=== PATIENT | female | born 1975 | race Caucasian/White ===

== ENCOUNTER → 2017-11-14 14:28 | Outpatient (POV) | payer OTHER, SELFPAY ==
[2017-11-14 14:54] VITALS: BP 145/80; PULSE 80; RESP 18; O2SAT 95
--- NOTE | 2017-11-14 15:12 | P.CONS_ITS ---
Assessment and Plan (1) Bilateral sacroiliitis Current visit: Yes Status: Acute Category: Medical Code(s): M46.1 - Sacroiliitis, not elsewhere classified (2) Degenerative joint disease (DJD) of lumbar spine Current visit: Yes Status: Acute Qualifiers: Spinal osteoarthritis complication: with radiculopathy Qualified Code(s): M47.26 - Other spondylosis with radiculopathy, lumbar region Category: Medical Code(s): M47.816 - Spondylosis without myelopathy or radiculopathy, lumbar region - Assessment and plan all Dx Assessment and Plan for all problems:: We will seek approval and plan on bilateral SI joint injections under fluoroscopy. She is to continue with her Celebrex. We will follow-up with her after these injections HPI - Data of Consult Patient: new to practice Consult date: 11/14/17 Requesting Physician: Gaurav Mariee MD Primary Care Provider: Heriberto Barraza MD - Consult Narrative Reason for consult: Back pain and bilateral hip pain History of present illness: Ms. Mcclure is a 42 year old female CC: Gaurav Mariee MD [facility] History I have reviewed the patient's past medical history: Yes Medical History: Denies:: Cancer, Diabetes Mellitus Type 1, Diabetes Mellitus Type 2, MRSA Other Medical History: Reports: Arthritis Other Surgeries: Yes: Hysterectomy-Total Amputation: No Fractures: No - *Social History Smoking Status: Never smoker Alcohol Intake: never Occupational Status: employed - Psychiatric History Expresses thoughts of harming self/others: None Suicide Plan Description: No Plan *Family Hx:: No significant family history Review of Systems - *Musculoskeletal Reports abnormal walking, Reports joint pain, Reports back pain, Reports stiffness Objective Vital signs: Pulse Resp BP Pulse Ox 80 18 145/80 95 11/14/17 14:54 11/14/17 14:54 11/14/17 14:54 11/14/17 14:54 - Routine Back/Spine/Pelvis Exam Back/Spine: Present: vertebral tenderness Pelvis: Present: SI joint tenderness Comments: Positive Jewel's test bilaterally - *Routine Neurological Exam Present: alert, oriented X3, normal reflexes, moving all extremities, normal tone, normal speech Opioid Risk Tool - Opioid Risk Tool-Female Family hx alcohol abuse: N Family hx illegal drugs: N Family hx rx drug abuse: N Personal hx alcohol abuse: N Personal hx illegal drugs: N Personal hx rx drug abuse: N Age: 16-45 Hx of sexual abuse: N Mental health issues-ADD,OCD,Bipolar, etc: N Hx of depression: N Female Risk Score: 1
== END ==
PROVIDERS: PCP Family Medicine; Visit Provider Anesthesiology
DX: M47.26 Other spondylosis with radiculopathy, lumbar region (principal)
CPT/HCPCS: 99202

== ENCOUNTER → 2018-01-29 09:24 | Outpatient (POV) | payer OTHER, SELFPAY | PROVIDERS: PCP Family Medicine; Visit Provider Physician Assistant | DX: Z00.00 Encounter for general adult medical examination without abnormal findings (principal) ==

== ENCOUNTER → 2018-03-13 09:13 | Outpatient (CLI) | payer OTHER, SELFPAY ==
[2018-03-13 10:08] LABS: T4 (Thyroxine) 8.7 ug/dl (4.7-13.3); Triiodothryronine (T3) Uptake 35 % (31-39)
[2018-03-14 06:19] LABS: Estradiol 143.4 pg/mL (.); FSH 1.6 mIU/mL (.); LH 2.3 mIU/mL (.); Vitamin D 25 Hydroxy 14.4 ng/mL (30.0-100.0)
[2018-03-15 14:48] LABS: Testosterone,Free 1.6 pg/mL (0.0-4.2)
== END ==
PROVIDERS: PCP Family Medicine; Visit Provider Nurse Practitioner Obstetrics & Gynecology
DX: R53.83 Other fatigue (principal); R63.5 Abnormal weight gain
CPT/HCPCS: 82652; 82670; 83001; 83002; 84402; 84436; 84479

== ENCOUNTER → 2018-10-09 14:31 | Outpatient (CLI) | payer OTHER, SELFPAY ==
[2018-10-09 15:38] LABS: Basophils # 0.1 K/mm3 (0-0.2); Basophils % 0.5 % (0.1-2.0); Eosinophils # 0.2 K/mm3 (0.0-0.4); Eosinophils % 1.3 % (0.1-12.0); Hematocrit 53.3 % (37.0-47.0); Hemoglobin 17.4 g/dL (12.2-16.2); Lymphocytes # 3.5 K/mm3 (0.7-4.5); Lymphocytes % 24.8 % (10-50); Mean Corpuscular HGB Conc 32.6 g/dL (31.8-35.4); Mean Corpuscular Hemoglobin 29.6 pg (27.0-31.2); Mean Corpuscular Volume 90.6 fl (81-99); Mean Platelet Volume 7.6 fl (7.4-10.4); Monocytes # 0.7 K/mm3 (0.1-1.0); Monocytes % 4.9 % (1.7-9.3); Neutrophils # 9.5 K/mm3 (1.8-7.8); Neutrophils % 68.5 % (37.0-80.0); Platelet Count 271 K/mm3 (142-424); Red Blood Count 5.88 M/mm3 (4.20-5.40); Red Cell Distribution Width 13.6 % (11.5-17.5); White Blood Count 13.9 K/mm3 (4.8-10.8)
[2018-10-09 16:44] LABS: Free T4 (Free Thyroxine) 1.01 ng/dl (0.76-1.46); Thyroid Stimulating Hormone 1.86 uIU/ml (0.358-3.740)
[2018-10-12 09:11] LABS: Vitamin B12 977 pg/mL (232-1245); Vitamin D 25 Hydroxy 37.2 ng/mL (30.0-100.0)
== END ==
PROVIDERS: Visit Provider Family Medicine
DX: R53.83 Other fatigue (principal); R79.89 Other specified abnormal findings of blood chemistry
CPT/HCPCS: 36415; 82607; 82652; 84439; 84443; 85025

== ENCOUNTER → 2020-10-22 09:19 | Outpatient (CLI) | payer OTHER, SELFPAY ==
--- NOTE | 2020-10-22 09:22 | MM_ITS ---
PROCEDURE: MM DIG SCREENING MAMM BI W/CAD Digital Breast Tomosynthesis Included CLINICAL INDICATION: screening xmg There is no personal or family history of breast cancer. COMPARISON: This is a baseline exam, patient without complaints TECHNIQUE: Standard CC and MLO images and 3D Tomosynthesis was obtained. R2 CAD reviewed. FINDINGS: Moderate diffuse fibroglandular densities are seen in both breast primarily upper outer quadrants. There is a small benign-appearing nodular density just deep nipple left breast. There is no suspicious lesion and no suspicious microcalcifications. IMPRESSION: Mild to moderate breast density with no suspicious lesions seen BI-RAD Category: 1 Negative FOLLOW-UP: 1YR 1 Year Follow-up (A letter has been sent to the patient regarding results of the study.) Dictated by: Dr. Nikita Auguste MD 10/23/2020 10:13 Dr. Nikita Auguste MD in [place] 10/23/2020 10:13
== END ==
PROVIDERS: PCP Family Medicine; Visit Provider Nurse Practitioner Obstetrics & Gynecology
DX: Z12.31 Encounter for screening mammogram for malignant neoplasm of breast (principal)
CPT/HCPCS: 77063; 77067

== ENCOUNTER 2021-07-18 12:31 | Emergency (ER) | payer OTHER, SELFPAY ==
[2021-07-18 13:05] VITALS: BP 133/91; PULSE 114; RESP 21; TEMP 37; O2SAT 96; BMI 34.3
[2021-07-18 13:30] VITALS: BP 133/91; PULSE 114; RESP 21; TEMP 37; O2SAT 96
--- NOTE | 2021-07-18 13:43 | HMH.EDUTC ---
[facility] [place] Clinical Impression: Exposure to COVID-19 virus Disposition: Home, Self-Care Condition on Discharge: Good Instructions: DI for COVID-19 (Suspected or Confirmed ), How to Care for Someone with COVID-19, Preventing the Spread of Coronavirus Discharge Instructions Additional Instructions: covid swab was sent to lab, call later today for results. self isolate until test results are known to be negative No sign of a bacterial infection. Likely viral. Viruses can take 7-14 days to run their course. Nasal saline and bulb syringe or nose Briana to remove nasal drainage to help with nasal congestion. Hard to eat, drink, sleep with nasal congestion so important to keep this cleaned out. Monitor temp. Tylenol or Motrin as needed for pain or fever Encourage fluids, water, Gatorade, Powerade, Pedialyte if infant/toddler/child Warm salt water gargles Warm fluids Sore throat lozenges Sleep elevated Humidifier/vaporizer Follow-up immediately for new or worsening symptoms or no noticeable improvement over the next 48-72 hours. Referrals: Heriberto Barraza MD [Primary Care Provider] - Time of Disposition: 13:45 Medical Decision Making - Arron Inquiry Pt receiving controlled substance: No Vital Signs: 07/18/21 13:05 07/18/21 13:30 Temperature 98.6 F 98.6 F Temperature Source Oral Pulse Rate 114 H Pulse Rate [Right Brachial] 114 H Respiratory Rate 21 21 Blood Pressure 133/91 H Blood Pressure [Right Arm] 133/91 H Blood Pressure Mean [Right Arm] 105 Blood Pressure Source [Right Arm] Automatic Cuff Blood Pressure Position [Right Arm] Sitting 02 Sat by Pulse Oximetry 96 Oxygen Delivery Method Room Air Orders (Tests/Meds): ORDERS Category Date Time Status Rapid PCR Covid and Flu A/B Stat Lab 07/18/21 13:17 Ordered [facility] [place] HPI - General Chief complaint: Urgent [facility] Stated complaint: exposure,symthoms Time Seen by Provider: 07/18/21 13:43 Mode of Arrival: Ambulatory Source of Information: Patient Limitations: No Limitations Description of Symptoms (Recalled from Triage Doc. by RN): PATIENT C/O COUGH, FEVER, SORE THROAT, DIARRHEA, AND HEADACHE SINCE MONDAY. RECENTLY EXPOSED TO COVID THROUGH PATIENTS AT WORK ([facility]) HEENT Symptoms (Recalled from RN notes): Yes Resp Symptoms (Recalled from RN notes): Yes Skin Symptoms (Recalled from RN notes): No MS Symptoms (Recalled from RN notes): No Functional Status (Recalled from RN notes): WNL - History of Present Illness Provider Complaint: 45 yr old female presents for cough, congestion, diarrhea, headache,sore throat and exposer to covid - Related Data Home Medications Medication Instructions Recorded Confirmed dexlansoprazole 60 mg PO 30 Days #30 03/07/18 04/28/21 capsule,biphase delayed release loratadine 10 mg tablet 10 mg PO ONCE 03/07/18 04/28/21 hepatitis A virus vaccine (PF) IM #1 ml 10/03/19 04/28/21 1,440 DILCIA unit/mL intramuscular syringe albuterol sulfate 90 mcg/actuation 2 puff INHALATION PRN g 04/28/21 04/28/21 aerosol inhaler Previous Rx's Medication Instructions Recorded phentermine 37.5 mg tablet 37.5 mg PO DAILY #30 tab 06/29/21 Allergies Allergy/AdvReac Type Severity Reaction Status Date / Time levofloxacin [From Levaquin] Allergy Unknown Verified 04/28/21 17:33 - Worker's Comp Is this a Worker's Comp case?: No [facility] History - Hepatitis A Screen Drug use history?: No High risk sexual behaviors?: No History of sexually transmitted infection?: No Currently employed?: No Childcare worker?: No Do you have indoor plumbing?: Yes Do you have electricity?: Yes Attestation statement:: This patient has been screened for Hepatitis A risk factors. I have reviewed the patient's past medical history: Yes Medical History: Reports:: Gastroesophageal Reflux Disease(GERD) Denies:: Cancer, Diabetes Mellitus Type 1, Diabetes Mellitus Type 2, MRSA Other Medical History: Reports: Arthritis
[2021-07-18 13:48] LABS: UTC Strep Screen (Rapid) Negative (Negative)
[2021-07-18 13:59] LABS: Coronavirus 19, PCR Not Detected (NotDetected); Influenza A, PCR Not Detected (NotDetected); Influenza B, PCR Not Detected (NotDetected)
== END 2021-07-18 13:53 | disposition home or self-care (01) ==
PROVIDERS: Emergency Provider Nurse Practitioner Family; PCP Family Medicine
DX: Z20.822 Contact with and (suspected) exposure to COVID-19 (principal); R51.9 Headache, unspecified; R05 Cough; K21.9 Gastro-esophageal reflux disease without esophagitis
CPT/HCPCS: 87880; 99203; G0463; U0003

== ENCOUNTER 2022-01-10 07:20 | Emergency (ER) | payer OTHER, SELFPAY ==
[2022-01-10 07:22] VITALS: BP 156/84; PULSE 92; RESP 18; TEMP 36.9; O2SAT 94; BMI 37.8
--- NOTE | 2022-01-10 07:47 | CT_ITS ---
FINAL REPORT CLINICAL HISTORY: abd pain// FINDINGS: CT OF THE ABDOMEN AND PELVIS WITH CONTRAST Axial CT images of the abdomen and pelvis were obtained after the administration of iv contrast. Coronal reformatted images were also obtained and reviewed. This study was performed with techniques to keep radiation doses as low as reasonably achievable (ALARA). Individualized dose reduction techniques using automated exposure control or adjustment of mA and/or kV according to the patient's size were employed. Abdomen: The lung bases are clear. The heart is normal in size. The liver has an echogenic appearance consistent with fatty infiltration. The gallbladder surgically absent. The spleen is unremarkable. No adrenal mass is present. The pancreas has an unremarkable appearance. The kidneys are normal, without evidence of mass or hydronephrosis. The aorta is normal in caliber. There is no adenopathy. No abdominal mass or abnormal fluid collection is seen. Pelvis: The appendix is normal. The uterus is surgically absent. There is a cystic right adnexal mass measuring 41 mm which may represent ovarian cyst. The urinary bladder is unremarkable. No inflammatory process is seen. There is a small amount of pelvic free fluid. This may be physiologic or reactive. There is no evidence of bowel obstruction. IMPRESSION: No evidence of acute intra-abdominal process. Reviewed, Interpreted and Dictated by Patricio Whitmore III, MD Transcribed by BELINDA Watts Authenticated by Patricio Whitmore III, MD on 01/10/2022 09:55:[address] [facility]
[2022-01-10 07:54] LABS: Microscopic, Urine URINE MICROSCOPIC (MICROSCOPIC)
[2022-01-10 07:56] LABS: Appearance,Urine CLEAR (Clear); Bilirubin,Urine Negative (Negative); Blood, Urine Negative (Negative); Color,Urine YELLOW (Yellow); Glucose,Urine (UA) Negative (Negative); Ketones,Urine Negative (Negative); Leukocyte Esterase,Urine Negative (Negative); Nitrate,Urine Negative (Negative); Protein,Urine Negative (Negative); Urobilinogen,Urine 0.2 EU/dl (0.2)
[2022-01-10 08:01] LABS: Chloride 99 mmol/L (98-107); Potassium 3.6 mmoL/L (3.5-5.1); Sodium 133 mmol/L (136-145)
[2022-01-10 08:03] LABS: Amylase 59 U/L (30-110); Blood Urea Nitrogen 8 mg/dl (7-17); Creatinine Clearance Estimated 187 mL/min (50-200); Estimated Glomerular Filt Rate 108 ml/min (>60); GFR (African American) 131 ML/MIN (>60)
[2022-01-10 08:04] LABS: Alanine Aminotransferase 48 U/L (12-78); Albumin Level 4.4 g/dl (3.5-5.0); Albumin/Globulin Ratio 1.6 (1.1-1.8); Alkaline Phosphatase 62 U/L (38-126); Anion Gap 12.6 mEq/L (5-15); Aspartate Amino Transferase 43 U/L (14-36); Bilirubin,Total 0.3 mg/dl (0.2-1.3); Calcium 7.8 mg/dl (8.4-10.2); Carbon Dioxide 25 mmol/L (22.0-30.0); Globulin 2.7 g/dL (1.3-3.2); Glucose 107 mg/dl (74-100); Lipase 62 U/L (23-300); Total Protein,Serum 7.1 g/dl (6.3-8.2)
[2022-01-10 08:05] LABS: Basophils # 0.1 K/mm3 (0-0.2); Basophils % 0.8 % (0.1-2.0); Eosinophils # 0.2 K/mm3 (0.0-0.4); Eosinophils % 1.9 % (0.1-12.0); Hematocrit 52.5 % (37.0-47.0); Hemoglobin 17.4 g/dL (12.2-16.2); Lymphocytes # 1.9 K/mm3 (0.7-4.5); Lymphocytes % 18.3 % (10-50); Mean Corpuscular HGB Conc 33.2 g/dL (31.8-35.4); Mean Corpuscular Hemoglobin 29.8 pg (27.0-31.2); Mean Corpuscular Volume 89.7 fl (81-99); Monocytes # 1.1 K/mm3 (0.1-1.0); Monocytes % 10.8 % (1.7-9.3); Neutrophils # 6.9 K/mm3 (1.8-7.8); Neutrophils % 68.3 % (37.0-80.0); Platelet Count 234 K/mm3 (142-424); Red Blood Count 5.85 M/mm3 (4.20-5.40); Red Cell Distribution Width 13.7 % (11.5-17.5); White Blood Count 10.1 K/mm3 (4.8-10.8)
[2022-01-10 08:16] LABS: Bacteria,Urine 2+ /lpf; WBC,Urine Occasional #/hpf (0-3)
--- NOTE | 2022-01-10 08:23 | HMH.EDABDPAI ---
ED Disposition Clinical Impression: UTI (urinary tract infection), Ovarian cyst Disposition: Home, Self-Care Condition on Discharge: Good Instructions: Urinary Tract Infection, Ovarian Cyst, DI for Acute Abdominal Pain Additional Instructions: Please follow up with your primary care physician in 2-3 days. Please also keep your referral to Gynecology for outpatient management, will need repeat US of your ovaries in 8 weeks, due to ovarian cyst. Please take the antibiotic as prescribed for your UTI. Please take tylenol and ibuprofen for pain control. Return if worsening abdominal pain or any other concerns. 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 The time I documented below is in addition to time spent performing reported procedures but includes the following listed in this critical care notation. Medical Decision Making - Medical Records Medical records reviewed: Yes: I reviewed the patient's medical records. - Arron Inquiry Pt receiving controlled substance: No Vital Signs: 01/10/22 07:22 01/10/22 09:13 01/10/22 10:23 Temperature 98.5 F 98.5 F Temperature Source Oral Pulse Rate 80 80 Pulse Rate [Left Radial] 92 H Respiratory Rate 18 16 20 Blood Pressure 115/63 128/74 Blood Pressure [Right Arm] 156/84 H Blood Pressure Mean [Right Arm] 108 Blood Pressure Source Automatic Cuff Blood Pressure Source [Right Arm] Automatic Cuff Blood Pressure Position Sitting Blood Pressure Position [Right Arm] Sitting 02 Sat by Pulse Oximetry 94 L 95 Oxygen Delivery Method Room Air Room Air Room Air - Lab Data Lab results reviewed: Yes: I reviewed the patient's lab results. Lab Results 01/10/22 07:40: Urine Color Yellow, Urine Appearance Clear, Urine pH 6.0, Ur Specific [place] 1.020, Urine Protein Negative, Urine Glucose (UA) Negative, Urine Ketones Negative, Urine Blood Negative, Urine Nitrate Negative, Urine Bilirubin Negative, Urine Urobilinogen 0.2, Ur Leukocyte Esterase Negative, Urine WBC Occasional, Ur Squamous Epith Cells 3-5, Urine Bacteria 2+ 01/10/22 07:40: WBC 10.1, RBC 5.85 H, Hgb 17.4 H, Hct 52.5 H, MCV 89.7, MCH 29.8, MCHC 33.2, RDW 13.7, Plt Count 234, MPV 8.0, Neut % (Auto) 68.3, Lymph % (Auto) 18.3, [place] % (Auto) 10.8 H, Eos % (Auto) 1.9, Baso % (Auto) 0.8, Neut # (Auto) 6.9, Lymph # (Auto) 1.9, [place] # (Auto) 1.1 H, Eos # (Auto) 0.2, Baso # (Auto) 0.1 01/10/22 07:40: Sodium 133 L, Potassium 3.6, Chloride 99, Carbon Dioxide 25, Anion Gap 12.6, BUN 8, Creatinine 0.60, Estimated Creat Clear 187, Estimated GFR 108, Est GFR ( Amer) 131, Glucose 107 H, Calcium 7.8 L, Total Bilirubin 0.3, AST 43 H, ALT 48, Alkaline Phosphatase 62, Total Protein 7.1, Albumin 4.4, Globulin 2.7, Albumin/Globulin Ratio 1.6, Amylase 59, Lipase 62 Result diagrams: 01/10/22 07:40 01/10/22 07:40 Orders (Tests/Meds): ED MEDICATIONS Discontinued Medications Generic Name Dose Route Start Last Admin Trade Name Freq PRN Reason Stop Dose Admin Sodium Chloride 1,000 mls @ 999 mls/hr 01/10/22 08:00 01/10/22 07:49 Sod Chlor 0.9% 1000ml Bag IV 01/10/22 09:00 999 mls/hr .Q1H1M ADAN Administration Iopamidol 75 ml 01/10/22 08:12 01/10/22 08:13 Iopamidol-370 (76%);100ml Bottle IV 01/10/22 08:13 75 ml ONCE ONE Administration Ketorolac Tromethamine 30 mg 01/10/22
[2022-01-10 09:13] VITALS: BP 115/63; PULSE 80; RESP 16; O2SAT 95
--- NOTE | 2022-01-10 09:13 | PC.NURSE ---
PT resting in bed. Given warm blankets and advised her we were waiting on her CT results.
--- NOTE | 2022-01-10 09:53 | PC.NURSE ---
Called and spoke with radiology r/t results. Silvia advised she would send us down the prelim. Updated patient on POC
[2022-01-10 10:23] VITALS: BP 128/74; PULSE 80; RESP 20; TEMP 36.9; O2SAT 96
== END 2022-01-10 10:25 | disposition home or self-care (01) ==
PROVIDERS: Emergency Provider Student in an Organized Health Care Education/Training Program; PCP Family Medicine
DX: N30.00 Acute cystitis without hematuria (principal); N83.202 Unspecified ovarian cyst, left side; K21.9 Gastro-esophageal reflux disease without esophagitis
CPT/HCPCS: 74177; 80053; 81001; 82150; 83690; 85025; 87086; 96365; 96375; 99284; Q9967

== ENCOUNTER → 2022-09-06 07:52 | Outpatient (CLI) | payer OTHER, SELFPAY ==
[2022-09-06 08:49] LABS: Basophils # 0.2 K/mm3 (0-0.2); Basophils % 1.6 % (0.1-2.0); Eosinophils # 0.3 K/mm3 (0.0-0.4); Eosinophils % 2.4 % (0.1-12.0); Hematocrit 54.4 % (37.0-47.0); Hemoglobin 17.8 g/dL (12.2-16.2); Lymphocytes # 3.7 K/mm3 (0.7-4.5); Lymphocytes % 27.1 % (10-50); Mean Corpuscular HGB Conc 32.7 g/dL (31.8-35.4); Mean Corpuscular Hemoglobin 29.9 pg (27.0-31.2); Mean Corpuscular Volume 91.3 fl (81-99); Mean Platelet Volume 8.5 fl (7.4-10.4); Monocytes # 0.6 K/mm3 (0.1-1.0); Monocytes % 4.5 % (1.7-9.3); Neutrophils # 8.8 K/mm3 (1.8-7.8); Neutrophils % 64.5 % (37.0-80.0); Platelet Count 323 K/mm3 (142-424); Red Blood Count 5.96 M/mm3 (4.20-5.40); Red Cell Distribution Width 13.5 % (11.5-17.5); White Blood Count 13.6 K/mm3 (4.8-10.8)
[2022-09-06 09:06] LABS: Chloride 102 mmol/L (98-107); Potassium 4.2 mmoL/L (3.5-5.1); Sodium 138 mmol/L (136-145)
[2022-09-06 09:08] LABS: Blood Urea Nitrogen 15 mg/dl (7-17); Estimated Glomerular Filt Rate 90 ml/min (>60); GFR (African American) 109 ML/MIN (>60)
[2022-09-06 09:09] LABS: Alanine Aminotransferase 29 U/L (12-78); Albumin Level 4.7 g/dl (3.5-5.0); Alkaline Phosphatase 63 U/L (38-126); Anion Gap 13.2 mEq/L (5-15); Aspartate Amino Transferase 28 U/L (14-36); Calcium 9.2 mg/dl (8.4-10.2); Carbon Dioxide 27 mmol/L (22.0-30.0); Chol/HDL Ratio 5.1 (1-3.5); Cholesterol 164 mg/dl (140-200); Globulin 2.4 g/dL (1.3-3.2); Glucose 112 mg/dl (74-100); HDL Cholesterol 32 mg/dl (40-60); Total Protein,Serum 7.1 g/dl (6.3-8.2); Triglycerides 179 mg/dl (30-150); VLDL Cholesterol 36 mg/dL (0-40)
[2022-09-06 09:14] LABS: Bilirubin,Total 0.1 mg/dl (0.2-1.3)
[2022-09-06 09:20] LABS: Direct LDL Cholesterol 100.18 mg/dL (100-129)
[2022-09-06 09:26] LABS: Free T4 (Free Thyroxine) 1.13 ng/dl (0.78-2.19)
[2022-09-06 09:39] LABS: Thyroid Stimulating Hormone 2.41 uIU/mL (0.465-4.68)
[2022-09-06 11:51] LABS: 25-OH Vitamin D, Total 27.7 ng/mL (30-100)
== END ==
PROVIDERS: PCP Family Medicine; Visit Provider Emergency Medicine
DX: R63.5 Abnormal weight gain (principal); E55.9 Vitamin D deficiency, unspecified; Z79.899 Other long term (current) drug therapy
CPT/HCPCS: 36415; 80053; 80061; 82306; 83036; 84439; 84443; 85025

== ENCOUNTER → 2022-11-02 14:20 | Outpatient (CLI) | payer OTHER, SELFPAY ==
--- NOTE | 2022-11-02 14:20 | US_ITS ---
FINAL REPORT CLINICAL HISTORY: left lower quadrant pain FINDINGS: Transvaginal sonographic images of the pelvis were obtained. The uterus is surgically absent. The right ovary measures 2.7 cm in length and left ovary measures 4.8 cm in length. Normal blood flow seen to the ovaries. There is a 3.9 cm left ovarian cyst. There is no evidence of free fluid. IMPRESSION: 3.9 cm left ovarian cyst. Surgically absent uterus. Reviewed, Interpreted and Dictated by Patricio Whitmore III, MD Transcribed by Rebecca Buck Authenticated and [facility]
== END ==
PROVIDERS: PCP Family Medicine; Visit Provider Obstetrics & Gynecology
DX: R10.32 Left lower quadrant pain (principal)
CPT/HCPCS: 76830

== ENCOUNTER → 2023-03-28 13:42 | Outpatient (CLI) | payer OTHER, SELFPAY ==
--- NOTE | 2023-03-28 13:46 | US_ITS ---
FINAL REPORT CLINICAL HISTORY: ovarian cyst, follow-up COMPARISON: 11/02/2022 FINDINGS: Transvaginal sonographic images of the pelvis were obtained. The uterus is surgically absent. The right ovary measures 3.0 cm in length. There is a 0.9 cm cyst/follicle. The left ovary measures 1.2 cm in length. Several small follicles are noted. Previously seen left ovarian cyst has significantly improved. Normal blood flow seen to the ovaries. There is no evidence of free fluid. IMPRESSION: Right ovarian cyst. Previously seen left ovarian cyst has significantly improved. Reviewed, Interpreted and Dictated by Patricio Whitmore III, MD Transcribed by Vonda Rodríguez Authenticated and [facility]
== END ==
PROVIDERS: PCP Family Medicine; Visit Provider Obstetrics & Gynecology
DX: N83.209 Unspecified ovarian cyst, unspecified side (principal)
CPT/HCPCS: 76830

== ENCOUNTER 2023-05-13 10:58 | Emergency (ER) | payer OTHER, SELFPAY ==
[2023-05-13 10:58] VITALS: BP 139/84; PULSE 88; RESP 16; TEMP 36.8; O2SAT 96; BMI 33.6
--- NOTE | 2023-05-13 11:35 | EXP.UTC ---
Discharge Plan Disposition Patient Disposition: Home, Self-Care Condition: Good Prescriptions Prescriptions: New cyclobenzaprine 10 mg Tablet 10 mg PO BID PRN (Reason: Muscle Spasm) Qty: 20 0RF methylprednisolone 4 mg Tablets,Dose Pack 4 mg PO DIRECTED Qty: 21 0RF No Action metformin 500 mg tablet 500 mg PO BID Qty: 60 5RF Ozempic 2 mg/dose (8 mg/3 mL) pen injector 2 mg SQ WEEKLY Qty: 3 2RF cholecalciferol (vitamin D3) 1,250 mcg (50,000 unit) capsule 1,250 mcg PO WEEKLY Qty: 5 0RF Referrals Follow up/Referrals: Heriberto Barraza MD [Primary Care Provider] - See instructions [place] JR, MD [Physician] - See instructions Activity Restrictions/Add. Instructions Additional Instructions/Restrictions: Go home and rest. It would be best if you rested tomorrow too. No heavy lifting. Take the oral medications as directed. The muscle relaxer (cyclobenzaprine--Flexeril) will make you drowsy, so don't drive or operate heavy machinery after taking it. Don't start the oral steroids (medrol dose pack) until tomorrow, since you had the shots in here today. Follow up with your regular doctor Follow up with Dr. West (orthopedics) if you continue to have symptoms. I put in a referral but you need to call his office and schedule an appointment. GO TO THE ER FOR ANY WORSENING SYMPTOMS OR CONCERN, ESPECIALLY BOWEL OR BLADDER ISSUES, SADDLE AREA NUMBNESS, FEVER, ETC Clinical Impressions Clinical Impression: Left shoulder pain Stand Alone Forms Stand Alone Forms: Work/School Release Instructions Patient Instructions: Shoulder Tendinopathy, DI for Shoulder Pain, Methylprednisolone Injection, Ketorolac Injection Discharge ED Provider: Miguel Harrison [facility] General Stated complaint: left shoulder pain, no accident Mode of Arrival: Ambulatory Source of Information: Patient Limitations: No Limitations Time Seen by Provider: 05/13/23 11:34 Description of Symptoms (Recalled from Triage Doc. by RN): Patient reports left shoulder pain. No injury noted. States it hurts to lift up her arm. HEENT Symptoms (Recalled from RN notes): No Resp Symptoms (Recalled from RN notes): No Skin Symptoms (Recalled from RN notes): No MS Symptoms (Recalled from RN notes): Yes Functional Status (Recalled from RN notes): wnl History of Present Illness Provider Complaint: She c/o left shoulder pain for the past 2 days. She denies any known injury, but she has been busier than normal and using the shoulder more than normal. She stats that if she raises her shoulder up or moves her arm certain ways it makes her pain worse. Her shoulder is tender to touch in certain areas also. She denies chest pain and states that this pain is her normal arthritic shoulder pain that flares up at times. She denies any shortness of breath. She denies any other joint complaints. Related Data Previous Rx's Medication Instructions Recorded cholecalciferol (vitamin D3) 1,250 1,250 mcg PO WEEKLY #5 caps 09/23/22 mcg (50,000 unit) capsule metformin 500 mg tablet 500 mg PO BID #60 tabs 01/20/23 semaglutide 2 mg/dose (8 mg/3 mL) 2 mg (0.75 mL) SQ WEEKLY #3 mL 04/19/23 subcutaneous pen injector (Ozempic) cyclobenzaprine 10 mg tablet 10 mg PO BID PRN Muscle Spasm #20 05/13/23 tabs methylprednisolone 4 mg tablets in 4 mg PO DIRECTED #21 tabs 05/13/23 a dose pack Allergies Allergy/AdvReac Type Severity Reaction Status Date / Time levofloxacin [From Levaquin] Allergy Unknown Verified 04/19/23 16:22 Worker's Comp Is this a Worker's Comp case?: No [facility] Disclaimer: The information contained in this section may have been updated after the patient was seen, as this information can be updated by other users. Medical History (Updated 05/13/23 @ 11:58 by Miguel Harrison APRN) LLQ pain Obesity (BMI 30-39.9) Prediabetes Vaginitis Surgical History H/O: hys
[2023-05-13 12:13] VITALS: BP 139/84; PULSE 88; RESP 16; TEMP 36.8; O2SAT 96
== END 2023-05-13 12:14 | disposition home or self-care (01) ==
PROVIDERS: Emergency Provider Nurse Practitioner Family; PCP Family Medicine
DX: M25.512 Pain in left shoulder (principal); R73.03 Prediabetes; E66.9 Obesity, unspecified; Z87.891 Personal history of nicotine dependence
CPT/HCPCS: 96372; 99212; 99214; G0463

== ENCOUNTER 2023-11-22 08:02 | Emergency (ER) | payer OTHER, SELFPAY ==
[2023-11-22 08:15] VITALS: BP 126/85; PULSE 110; RESP 18; TEMP 37.1; O2SAT 98; BMI 31.3
--- NOTE | 2023-11-22 08:43 | EXP.UTC ---
Discharge Plan Disposition Patient Disposition: Home, Self-Care Condition: Good Prescriptions Prescriptions: New azithromycin [Zithromax Z-Imtiaz] 250 mg tablet See Rx Instructions .ROUTE .COMPLEX 5 Days Qty: 6 0RF Rx Instructions: For 250 mg dose pack: take 500 mg today (day 1), then 250 mg for 4 days (days 2-5) No Action loratadine [Claritin] 10 mg tablet 10 mg PO DAILY Mounjaro 15 mg/0.5 mL pen injector 15 mg SQ WEEKLY Qty: 2 2RF Referrals Follow up/Referrals: Heriberto Barraza MD [Primary Care Provider] - See instructions Activity Restrictions/Add. Instructions Additional Instructions/Restrictions: *Monitor Temp, Over the counter Motrin or Tylenol as directed/as needed Tylenol every 4 hours and Motrin every 6 hours (as long as your family doctor has told you that you can take it) for fever or pain. and straight to ER if unable to lower temp less than 101.0 after medication given *Warm salt water gargles may help to soothe the throat *Throat Lozenges? *Warm fluids like tea with honey may help to soothe the throat? *Sleep elevated *Humidifier/Vaporizer *Flonase 2 sprays in each nostril daily but be aware that it may take 2-3 days before you notice improvement *Bromfed may cause drowsiness. Know how it effects you (your child) before driving, caring for small child, or sending your child to school. Not other antihistamines/allergy medications while taking bromfed Your throat swab was sent for culture. Those results are typically sent to your primary care. Be sure to follow up in 2-3 days with your family doctor/primary care physician if no improvement so they can review those result and treat if necessary. If you don?t have a primary care doctor, I recommend you get one but in the mean time, you will have to return to a walk in clinic Follow up IMMEDIATELY for new or worsening symptoms or no Noticeable improvement over the next 48-72 hours. 911 for difficulty breathing or swallowing Clinical Impressions Clinical Impression: Pharyngitis Qualifiers: Pharyngitis/tonsillitis etiology: unspecified etiology Qualified Code(s): J02.9 - Acute pharyngitis, unspecified Instructions Patient Instructions: Sore Throat, DI for Fever (Symptom) -- Adult Discharge ED Provider: Madisyn Alanis [facility] [place] HPI General Stated complaint: sore throat Mode of Arrival: Ambulatory Source of Information: Patient Limitations: No Limitations Time Seen by Provider: 11/22/23 08:44 Description of Symptoms (Recalled from Triage Doc. by RN): Pt's symptoms are sore throat, bilateral ear pain, and fever. HEENT Symptoms (Recalled from RN notes): Yes Resp Symptoms (Recalled from RN notes): No Skin Symptoms (Recalled from RN notes): No MS Symptoms (Recalled from RN notes): No Functional Status (Recalled from RN notes): n/a History of Present Illness Provider Complaint: Patient states that she hasnt felt well for about 3 days States that her throat has been hurting when she swallows and has continued to get worse States that she has also been having bilateral ear pain and fever States that today she wasnt feeling any better States that she did a home COVID test and it was negative Related Data Home Medications Medication Instructions Recorded Confirmed loratadine 10 mg tablet (Claritin) 10 mg PO DAILY 08/31/23 11/22/23 Previous Rx's Medication Instructions Recorded tirzepatide 15 mg/0.5 mL 15 mg (0.5 mL) SQ WEEKLY #2 mL 09/05/23 subcutaneous pen injector (Mounjaro) azithromycin 250 mg tablet See Rx Instructions PO .COMPLEX 5 11/22/23 (Zithromax Z-Imtiaz) days #6 tabs Allergies Allergy/AdvReac Type Severity Reaction Status Date / Time levofloxacin [From Levaquin] Allergy Unknown Verified 11/22/23 08:32 Worker's Comp Is this a Worker's Comp case?: No [facility] Disclaimer: The information contained in this section may have been updated after the patient was seen, as this information can be updated by other users. Medical History LLQ pain Obesity (BMI 30-39.9) Prediabetes Vaginitis Surgical History H/O: hysterectomy fibroids Family History Other Anemia Cancer Coronary artery disease Diabetes FHx: mental illness Heart attack Hyperlipidemia Hypertension Substance abuse Social History Smoking Status: Former smoker alcohol intake: never substance use type: denies use current occupational status: employed Travel in the last 8 weeks: None current occupational exposures/hazards: Yes ROS Obtained: Yes All systems reviewed & no additional complaints except as documented and Yes Systems reviewed as appropriate & no additional complaints except as documented Constitutional Constitutional: Reports system reviewed and no additional complaints, except as documented, Reports as per HPI, Reports body ache and Reports fever(s) ENT Ears, Nose, Mouth, and Throat: Reports system reviewed and no additional complaints, except as documented, Reports as per HPI, Reports otalgia and Reports sore throat Cardiovascular Cardiovascular: Reports system reviewed and no additional complaints, except as documented and Reports as per HPI Respiratory Respiratory: Reports system reviewed and no additional complaints, except as documented and Reports as per HPI Gastrointestinal Gastrointestingal: Reports system reviewed and no additional complaints, except as documented and as per HPI Musculoskeletal Musculoskeletal: Reports system reviewed and no additional complaints, except as documented and Reports as per HPI Physical Exam General General appearance: alert and in no apparent distress ENT ENT exam: Present mucous membranes moist Expanded ENT Exam TM/Canal exam: Bilateral TM: bulging Throat exam: Present tonsillar erythema Respiratory Respiratory exam: Present normal lung sounds bilaterally; Absent respiratory distress or wheezes Cardiovascular Cardiovascular exam: Present regular rate, normal rhythm and normal heart sounds Neurological Exam Neurological exam: Present alert, oriented X3 and normal gait Medical Decision Making Arron Inquiry Pt receiving controlled substance: No Arron was queried for this patient: No Vital Signs: 11/22/23 08:15 Temperature 98.8 F Temperature Source Oral Pulse Rate [Right Radial] 110 H Respiratory Rate 18 Blood Pressure [Right Arm] 126/85 Blood Pressure Mean [Right Arm] 98 Blood Pressure Source [Right Arm] Automatic Cuff Blood Pressure Position [Right Arm] Sitting 02 Sat by Pulse Oximetry 98 Oxygen Delivery Method Room Air Lab Data Lab results reviewed: Yes I reviewed the patient's lab results.
[2023-11-22 09:03] LABS: UTC Influenza A Antigen Negative (Negative)
[2023-11-22 09:03] LABS: UTC Strep Screen (Rapid) Negative (Negative)
[2023-11-22 09:04] LABS: UTC Influenza B Antigen Negative (Negative)
[2023-11-22 09:15] VITALS: BP 126/85; PULSE 110; RESP 19; TEMP 37.1; O2SAT 98
== END 2023-11-22 09:15 | disposition home or self-care (01) ==
PROVIDERS: Emergency Provider Nurse Practitioner; PCP Family Medicine
DX: J02.9 Acute pharyngitis, unspecified (principal); H92.03 Otalgia, bilateral; R50.9 Fever, unspecified; Z87.891 Personal history of nicotine dependence
CPT/HCPCS: 87804; 87880; 99212; 99214; G0463

== ENCOUNTER 2024-02-27 16:36 | Outpatient (CLI) | payer OTHER, SELFPAY ==
[2024-02-27 18:17] LABS: Basophils # 0.1 K/mm3 (0-0.2); Eosinophils # 0.3 K/mm3 (0.0-0.4); Eosinophils % 2.1 % (0.1-12.0); Hematocrit 53.7 % (37.0-47.0); Lymphocytes # 2.9 K/mm3 (0.7-4.5); Mean Corpuscular HGB Conc 31.7 g/dL (31.8-35.4); Mean Corpuscular Hemoglobin 30.6 pg (27.0-31.2); Mean Corpuscular Volume 96.5 fl (81-99); Mean Platelet Volume 9.4 fl (7.4-10.4); Monocytes # 0.8 K/mm3 (0.1-1.0); Monocytes % 6.3 % (1.7-9.3); Neutrophils # 8.1 K/mm3 (1.8-7.8); Neutrophils % 66.6 % (37.0-80.0); Platelet Count 330 K/mm3 (142-424); Red Blood Count 5.56 M/mm3 (4.20-5.40); Red Cell Distribution Width 14.1 % (11.5-17.5); White Blood Count 12.1 K/mm3 (4.8-10.8)
[2024-02-27 19:15] LABS: Alanine Aminotransferase 25 U/L (12-78); Albumin Level 4.4 g/dl (3.5-5.0); Albumin/Globulin Ratio 1.8 (1.1-1.8); Alkaline Phosphatase 57 U/L (38-126); Anion Gap 11.5 mEq/L (5-15); Aspartate Amino Transferase 27 U/L (14-36); Bilirubin,Total 0.5 mg/dl (0.2-1.3); Blood Urea Nitrogen 9 mg/dl (7-17); Calcium 9.9 mg/dl (8.4-10.2); Carbon Dioxide 26 mmol/L (22.0-30.0); Chloride 106 mmol/L (98-107); Cholesterol 179 mg/dl (140-200); Estimated Glomerular Filt Rate 132 ml/min (>60); GFR (African American) 160 ML/MIN (>60); Globulin 2.4 g/dL (1.3-3.2); Glucose 108 mg/dl (74-100); HDL Cholesterol 45 mg/dl (40-60); Potassium 4.5 mmoL/L (3.5-5.1); Sodium 139 mmol/L (136-145); Total Protein,Serum 6.8 g/dl (6.3-8.2); Triglycerides 175 mg/dl (30-150); VLDL Cholesterol 35 mg/dL (0-40)
[2024-02-27 19:24] LABS: Hemoglobin A1C 5.6 % (4.0-6.0)
[2024-02-27 19:26] LABS: Direct LDL Cholesterol 104.88 mg/dL (100-129)
[2024-02-27 19:32] LABS: 25-OH Vitamin D, Total 23.6 ng/mL (30-100)
[2024-02-27 19:45] LABS: Thyroid Stimulating Hormone 1.42 uIU/mL (0.465-4.68)
== END 2024-02-27 23:59 | disposition home or self-care (01) ==
LOC: LAB.DROPOF 02-28 16:36
PROVIDERS: PCP Nurse Practitioner Family; Visit Provider Nurse Practitioner Family
DX: E11.9 Type 2 diabetes mellitus without complications (principal); E55.9 Vitamin D deficiency, unspecified; E78.01 Familial hypercholesterolemia; Z79.899 Other long term (current) drug therapy
CPT/HCPCS: 80053; 80061; 82306; 83036; 84443; 85025

== ENCOUNTER 2024-11-05 10:08 | Emergency (ER) | payer OTHER, SELFPAY ==
[2024-11-05 10:42] VITALS: BP 114/71; PULSE 102; RESP 18; TEMP 37.4; O2SAT 96; BMI 32.0
--- NOTE | 2024-11-05 10:52 | EXP.UTC ---
Discharge Plan Disposition Patient Disposition: Home, Self-Care Condition: Good Prescriptions Prescriptions: New azithromycin [Zithromax] 250 mg tablet 250 mg PO UD DOSE PK Qty: 6 0RF Rx Instructions: Take two (2) tablets today, then one (1) tablet days #2 thru #5 benzonatate 100 mg capsule 100 mg PO TIDP PRN (Reason: Cough) Qty: 30 0RF methylprednisolone 4 mg Tablets,Dose Pack 4 mg PO DIRECTED 6 Days Qty: 21 0RF Rx Instructions: Take 1 pack as directed for 6 days No Action loratadine [Claritin] 10 mg tablet 10 mg PO DAILY ondansetron 4 mg tablet,disintegrating 4 mg PO Q8H PRN (Reason: nausea and vomiting) Qty: 60 0RF tirzepatide 5 mg/0.5 mL pen injector 7.5 mg SQ WEEKLY Qty: 2 3RF celecoxib [Celebrex] 100 mg capsule 100 mg PO BID Qty: 60 2RF Referrals Follow up/Referrals: Heriberto Barraza MD [Primary Care Provider] - See instructions Activity Restrictions/Add. Instructions Additional Instructions/Restrictions: Drink plenty of fluids. Take tylenol or ibuprofen for pain or fever. Take the medications as directed. Follow up with your regular doctor. GO TO THE ER FOR ANY WORSENING SYMPTOMS Clinical Impressions Clinical Impression: Acute bronchitis Instructions Patient Instructions: Acute Bronchitis, DI for Acute Bronchitis Print Language Print Language: Serbian Discharge ED Provider: Miguel Harrison [facility] [place] HPI General Stated complaint: headache, cough, fever Mode of Arrival: Ambulatory Source of Information: Patient Time Seen by Provider: 11/05/24 10:52 Description of Symptoms (Recalled from Triage Doc. by RN): COUGH, FEVER, BACK PAIN HEENT Symptoms (Recalled from RN notes): Yes Resp Symptoms (Recalled from RN notes): Yes Skin Symptoms (Recalled from RN notes): No MS Symptoms (Recalled from RN notes): Yes Functional Status (Recalled from RN notes): WNL Related Data Home Medications ?Medication ?Instructions ?Recorded ?Confirmed loratadine 10 mg tablet (Claritin) 10 mg PO DAILY 08/31/23 02/27/24 Previous Rx's ?Medication ?Instructions ?Recorded ondansetron 4 mg disintegrating 4 mg PO Q8H PRN nausea and 05/03/24 tablet vomiting #60 tabs tirzepatide 5 mg/0.5 mL 7.5 mg (0.75 mL) SQ WEEKLY #2 mL 09/15/24 subcutaneous pen injector celecoxib 100 mg capsule (Celebrex) 100 mg PO BID #60 caps 09/19/24 azithromycin 250 mg tablet 250 mg PO UD DOSE PK #6 tabs 11/05/24 (Zithromax) benzonatate 100 mg capsule 100 mg PO TIDP PRN Cough #30 caps 11/05/24 methylprednisolone 4 mg tablets in 4 mg PO DIRECTED 6 days #21 tabs 11/05/24 a dose pack Allergies Allergy/AdvReac Type Severity Reaction Status Date / Time levofloxacin (From Levaquin) Allergy Unknown Verified 02/27/24 08:31 Worker's Comp Is this a Worker's Comp case?: No [facility] Disclaimer: The information contained in this section may have been updated after the patient was seen, as this information can be updated by other users. Medical History (Updated 11/05/24 @ 11:17 by Miguel Harrison APRN) Obesity (BMI 30-39.9) Prediabetes LLQ pain Vaginitis Surgical History H/O: hysterectomy Family History Other Anemia Cancer Coronary artery disease Diabetes FHx: mental illness Heart attack Hyperlipidemia Hypertension Substance abuse Social History Smoking Status: Former smoker alcohol intake: never substance use type: denies use current occupational status: employed Travel in the last 8 weeks: None current occupational exposures/hazards: Yes Have you lived/traveled outside [place] in past 30 days?: No Contact w/someone who lives/traveled outside [place] past 30 days?: No Exposure to someone with infectious disease in past 14 days?: No Do you have a fever (greater than 100.4 F or 38 C)?: No Have you tested positive for COVID-19: No Exposed to someone with COVID-19 in past 14 days?: No Do you have a sore throat?: No Do you have a cough?: Yes Do you have any weakness?: No Do you have any diarrhea?: No Are you experiencing any unusual bleeding?: No Do you have any muscle aches/pain?: No Do you have any abdominal pain?: No Are you experiencing loss of taste or smell?: No ROS Obtained: Yes All systems reviewed & no additional complaints except as documented Constitutional Constitutional: Reports poor appetite Eyes Eyes: Reports system reviewed and no additional complaints, except as documented ENT Ears, Nose, Mouth, and Throat: Reports as per HPI Cardiovascular Cardiovascular: Reports system reviewed and no additional complaints, except as documented and Denies chest pain Respiratory Respiratory: Denies shortness of breath, Reports chest congestion, Reports cough, Denies stridor and Denies wheezing Gastrointestinal Gastrointestingal: Reports system reviewed and no additional complaints, except as documented; Denies abdominal pain, diarrhea or vomiting Musculoskeletal Musculoskeletal: Reports system reviewed and no additional complaints, except as documented and Denies arthralgias Integumentary/Breasts Skin/Breast: Reports system reviewed and no additional complaints, except as documented and Denies rash Neurologic Neurologic: Denies paresthesias Allergic/Immunologic Allergic/Immunologic: Denies wheezing Physical Exam General General appearance: alert and in no apparent distress Eye Eye exam: Present normal appearance, PERRL and EOMI ENT ENT exam: Present mucous membranes moist and normal external ear exam Expanded ENT Exam External ear exam: Present normal external inspection TM/Canal exam: Bilateral TM: erythema and bulging Nose exam: Absent sinus tenderness Nasal speculum exam: Bilateral: normal Mouth exam: Present normal external inspection; Absent drooling Teeth exam: Present normal inspection Throat exam: Present tonsillar erythema and tonsillomegaly Neck Neck exam: Present normal inspection, full ROM and trachea midline; Absent tenderness, lymphadenopathy or thyromegaly Chest Chest inspection: Present normal inspection and symmetric chest wall rise; Absent tenderness or rash Respiratory Respiratory exam: Present normal lung sounds bilaterally; Absent respiratory distress, wheezes, stridor or accessory muscle use Cardiovascular Cardiovascular exam: Present regular rate, normal rhythm and normal heart sounds Abdominal Exam Abdominal exam: Present soft; Absent distention, tenderness, guarding, rebound or rigidity Extremities Exam Extremities exam: Present normal inspection, full ROM and normal capillary refill; Absent tenderness or calf tenderness Back Exam Back exam: Present normal inspection and full ROM; Absent tenderness Neurological Exam Neurological exam: Present alert and oriented X3 Psychiatric Psychiatric exam: Present normal affect and normal mood Skin Skin exam: Present warm, dry, intact and normal color Lymphatic Lymphatic Findings: no adenopathy Medical Decision Making Medical Records Medical records reviewed: No I reviewed the patient's medical records. Screening: Per USPSTF and CDC recommendations, given the prevalence of disease in our region, it is our hospital?s policy to screen for HIV and viral Hepatitis for all patients aged 18 and over and those with ongoing risk factors. Arron Inquiry Pt receiving controlled substance: No Vital Signs: 11/05/24 10:42 Temperature 99.3 F Temperature Source Oral Pulse Rate [Left Brachial] 102 H Respiratory Rate 18 Blood Pressure [Left Arm] 114/71 Blood Pressure Mean [Left Arm] 85 02 Sat by Pulse Oximetry 96 Lab Data Lab results reviewed: Yes I reviewed the patient's lab results.
[2024-11-05 11:33] VITALS: BP 114/71; PULSE 102; RESP 18; TEMP 37.4
== END 2024-11-05 11:34 | disposition home or self-care (01) ==
PROVIDERS: Emergency Provider Nurse Practitioner Family; PCP Family Medicine
DX: J40 Bronchitis, not specified as acute or chronic (principal); R50.9 Fever, unspecified; R51.9 Headache, unspecified; R05.9 Cough, unspecified; M54.9 Dorsalgia, unspecified; R63.8 Other symptoms and signs concerning food and fluid intake
CPT/HCPCS: 99212; G0381